=== PATIENT | female | born 1995 | race African-American/Black ===

== ENCOUNTER 2019-02-01 10:51 | Emergency (ER) | payer OTHER ==
[~2019-02-01] VITALS: Ht 152.4 cm; Wt 59.0 kg
[2019-02-01 12:56] VITALS: BP 129/87
[2019-02-01] MEDS: IBUPROFEN 600MG TABLET PO ONE (12:56)
[2019-02-01 13:18] LABS: HCG SCREEN NEGATIVE
== END 2019-02-01 14:23 | disposition left against medical advice (07) ==
LOC: ER 10:51
DX: R51 Headache (principal); R05 Cough; R22.0 Localized swelling, mass and lump, head; R09.81 Nasal congestion; Z98.890 Other specified postprocedural states
CPT/HCPCS: 81025; 84703; 99283

== ENCOUNTER 2019-07-02 18:32 | Emergency (ER) | payer OTHER ==
[~2019-07-02] VITALS: Ht 165.1 cm; Wt 54.0 kg
[2019-07-02] MEDS ORDERED: SODIUM CHLORIDE 0.9% 1,000 ML IV ONE (18:47)
[2019-07-02 19:14] LABS: BASOPHILS % 0.5 % (0.0-2.0); EOSINOPHILS % 0.9 % (0.0-5.0); HEMATOCRIT. 43.3 % (36.0-48.0); HEMOGLOBIN. 14.1 g/dL (12.0-16.0); LYMPHOCYTES % 23.2 % (20.0-50.0); MEAN CORPUSCULAR HEMOGLOBIN 29.8 pg (28.0-32.0); MEAN CORPUSCULAR VOLUME 91.2 fL (81.0-99.0); MEAN PLATELET VOLUME 8.1 fl (7.4-10.4); MONOCYTES % 9.2 % (2.0-8.0); NEUTROPHILS % 66.2 % (40.0-76.0); PLATELET 142 x1000/uL (130-400); RED BLOOD CELL COUNT 4.74 mill/uL (4.2-5.4); RED CELL DISTRIBUTION WIDTH 12.4 % (11.6-14.6)
[2019-07-02 19:20] LABS: PROTHROMBIN TIME 10.7 sec (9.6-11.0)
[2019-07-02 19:22] LABS: CHLORIDE 108 mEq/L (98-107)
[2019-07-02] MEDS ORDERED: MORPHINE SULFATE 4 MG/ML CPJ (NOT FOR IM USE) IV STA (19:26)
[2019-07-02] MEDS ORDERED: ONDANSETRON HCL 4MG/2ML INJ IV STA (19:26)
[2019-07-02 19:31] LABS: HCG SCREEN NEGATIVE
[2019-07-02 19:50] LABS: CLARITY URINE CLEAR (CLEAR); COLOR URINE YELLOW (YELLOW); KETONES URINE NEGATIVE (NEGATIVE); LEUKOCYTE ESTERASE URINE NEGATIVE (NEGATIVE); NITRITE URINE NEGATIVE (NEGATIVE); OCCULT BLOOD URINE NEGATIVE (NEGATIVE); PROTEIN URINE NEGATIVE (NEGATIVE); UROBILINOGEN URINE 0.2 E.U./dL (0.2-1.0)
[2019-07-02 20:10] LABS: *AMPHETAMINES SCREEN URINE NEGATIVE (NEGATIVE); *BARBITURATES SCREEN URINE NEGATIVE (NEGATIVE)
[2019-07-02 20:11] LABS: *BENZODIAZEPINES SCREEN URINE NEGATIVE (NEGATIVE); METHADONE URINE SCREEN NEGATIVE (NEGATIVE); OPIATES URINE SCREEN NEGATIVE (NEGATIVE); PHENCYCLIDINE URINE SCREEN NEGATIVE (NEGATIVE)
[2019-07-02 20:32] LABS: *COCAINE SCREEN URINE PRESUMTIVE POSITIVE (NEGATIVE); CANNABINOID URINE SCREEN PRESUMTIVE POSITIVE (NEGATIVE)
[2019-07-02] MEDS ORDERED: LORAZEPAM 2MG/ML CPJ IV ONE (20:45)
[2019-07-02] MEDS ORDERED: KETOROLAC 30MG/ML VIAL IV ONE (21:00)
[2019-07-02 21:20] VITALS: BP 137/95
== END 2019-07-02 22:20 | disposition home or self-care (01) ==
LOC: ER 18:32
DX: G43.909 Migraine, unspecified, not intractable, without status migrainosus (principal); F14.10 Cocaine abuse, uncomplicated; H53.149 Visual discomfort, unspecified; F17.200 Nicotine dependence, unspecified, uncomplicated; Z98.890 Other specified postprocedural states
CPT/HCPCS: 36415; 70450; 80053; 80305; 81003; 81025; 84703; 85025; 85610; 96374; 96375; 99284; J2270; J2405; J7030; Z7610; J1885; J2060

== ENCOUNTER 2020-08-25 08:35 | Observation (INO) | payer OTHER ==
[~2020-08-25] VITALS: Ht 152.4 cm; Wt 74.8 kg
[2020-08-25] MEDS ORDERED: PNV1TABL76 PO (09:06)
== END 2020-08-25 11:30 | disposition home or self-care (01) ==
LOC: 8 EST LDRP 08:35
PROVIDERS: ADMIT Obstetrics & Gynecology; ATTEND Obstetrics & Gynecology
DX: O26.893 Other specified pregnancy related conditions, third trimester (principal); Z3A.38 38 weeks gestation of pregnancy
CPT/HCPCS: 59025; 76805; G0378; 99281